=== PATIENT | female | born 1985 | race Asian ===

== ENCOUNTER 2017-10-05 17:00 | Outpatient (CLI) | payer MEDICAID, OTHER ==
[2017-10-05 17:56] LABS: WHITE BLOOD COUNT 11.8 10^3/ul (4.8-10.8)
[2017-10-05 17:56] LABS: ABNORMAL IP MESSAGE 1; HEMATOCRIT 32.5 % (37.0-47.0); HEMOGLOBIN 11.1 g/dl (12.0-16.0); MEAN CORPUSCULAR HEMOGLOBIN 33.3 pg (29.0-33.0); MEAN CORPUSCULAR HGB CONC 34.2 g/dl (32.0-37.0); MEAN CORPUSCULAR VOLUME 97.6 fl (82.0-101.0); MEAN PLATELET VOLUME 10.8 fl (7.4-10.4); PLATELET COUNT 187 10^3/UL (140-415); RED BLOOD COUNT 3.33 10^6/ul (4.20-5.40); RED CELL DISTRIBUTION WIDTH 14.1 % (11.5-14.5)
[2017-10-05 18:04] LABS: ADD MAN DIFF? YES; POSITIVE DIFF @See below
[2017-10-05 18:19] LABS: ALANINE AMINOTRANSFERASE 19 IU/L (13-69); ALBUMIN 3.8 g/dl (3.3-4.9); ALBUMIN/GLOBULIN RATIO 1.31; ALKALINE PHOSPHATASE 59 IU/L (42-121); ANION GAP 16 (8-16); ASPARTATE AMINO TRANSFERASE 22 IU/L (15-46); BILIRUBIN,INDIRECT 0.1 mg/dl (0-1.1); BILIRUBIN,TOTAL 0.1 mg/dl (0.2-1.3); BLOOD UREA NITROGEN 11 mg/dl (7-20); CALCIUM 8.5 mg/dl (8.4-10.2); CARBON DIOXIDE 23 mmol/L (21-31); CHLORIDE 108 mmol/L (97-110); CREATININE 0.45 mg/dl (0.44-1.00); GLUCOSE 84 mg/dl (70-220); POTASSIUM 3.8 mmol/L (3.5-5.1); SODIUM 143 mmol/L (135-144); TOTAL PROTEIN 6.7 g/dl (6.1-8.1)
[2017-10-05 18:32] LABS: ANISOCYTOSIS 1+ (0-0); BAND NEUTROPHILS #M 1.5 10^3/ul (0.0-0.6); BAND NEUTROPHILS % (M) 13 % (0-4); EOSINOPHILS % (M) 2 % (0-7); LYMPHOCYTES #M 2.8 10^3/ul (0.8-2.9); LYMPHOCYTES % (M) 24 % (15-51); METAMYELOCYTES #M 0.4 10^3/ul (0.0-0.0); METAMYELOCYTES %M 4 % (0-0); MICROCYTOSIS 1+ (0-0); MONOCYTE #M 0.5 10^3/ul (0.3-0.9); MONOCYTES % (M) 5 % (0-11); PLATELET ESTIMATE NORMAL; SEG NEUT #M 6.3 10^3/ul (1.6-7.5); SEGMENTED NEUTROPHILS (M) % 52 % (39-77); SMUDGE%M 1 % (0-0)
== END 2017-10-05 19:50 | disposition home or self-care (01) ==
LOC: OBT 17:00 → L-D 17:01 → OBT 19:50
DX: O99.613 Diseases of the digestive system complicating pregnancy, third trimester (principal); K80.20 Calculus of gallbladder without cholecystitis without obstruction; Z3A.32 32 weeks gestation of pregnancy
CPT/HCPCS: 36415; 76705; 80053; 85025

== ENCOUNTER 2017-11-23 10:53 | Outpatient (CLI) | payer MEDICAID | END 2017-11-23 13:56 | disposition home or self-care (01) | LOC: OBT 10:53 → L-D 10:53 → OBT 13:56 | DX: O26.893 Other specified pregnancy related conditions, third trimester (principal); Z3A.37 37 weeks gestation of pregnancy; R06.02 Shortness of breath | CPT/HCPCS: 76818 ==

== ENCOUNTER 2017-11-23 14:02 | Emergency (ER) | payer MEDICAID | END 2017-11-23 16:29 | disposition home or self-care (01) | LOC: FTE 14:02 | DX: O99.89 Other specified diseases and conditions complicating pregnancy, childbirth and the puerperium (principal); R06.09 Other forms of dyspnea; Z3A.39 39 weeks gestation of pregnancy | CPT/HCPCS: 99283; Z7502 ==

== ENCOUNTER 2017-11-27 19:49 | Inpatient (IN) | payer MEDICAID ==
[2017-11-27] MEDS ORDERED: LIDOCAINE 1% (MPF) 30 ML INJ INJ (21:00)
[2017-11-27] MEDS ORDERED: METHYLERGONOVINE 0.2 MG INJ IM (21:00)
[2017-11-27] MEDS ORDERED: IBUPROFEN 600 MG TAB PO (21:00)
[2017-11-27] MEDS ORDERED: MISOPROSTOL 200 MCG TAB PR (21:00)
[2017-11-27] MEDS ORDERED: BUTORPHANOL 2 MG INJ IV (21:00)
[2017-11-27] MEDS ORDERED: CARBOPROST 250 MCG INJ IM (21:00)
[2017-11-27] MEDS ORDERED: OXYTOCIN 30 UNITS/LR 500 ML IV ×2 (21:00)
[2017-11-27] MEDS: LACTATED RINGER'S 1,000 ML IV (22:00)
[2017-11-27 22:41] LABS: ADD MAN DIFF? NO
[2017-11-27 22:43] LABS: BASOPHILS % 0.2 % (0.0-2.0); EOSINOPHILS # 0.4 10^3/ul (0.0-0.5); EOSINOPHILS % 3.4 % (0.0-7.0); HEMATOCRIT 36.2 % (37.0-47.0); HEMOGLOBIN 12.2 g/dl (12.0-16.0); LYMPHOCYTES # 1.7 10^3/ul (0.8-2.9); MEAN CORPUSCULAR HEMOGLOBIN 33.6 pg (29.0-33.0); MEAN CORPUSCULAR HGB CONC 33.7 g/dl (32.0-37.0); MEAN CORPUSCULAR VOLUME 99.7 fl (82.0-101.0); MEAN PLATELET VOLUME 12.4 fl (7.4-10.4); MONOCYTE # 0.8 10^3/ul (0.3-0.9); MONOCYTES % 7.2 % (0.0-11.0); NEUTROPHIL # 7.4 10^3/ul (1.6-7.5); NEUTROPHILS % 70.9 % (39.0-77.0); PLATELET COUNT 172 10^3/UL (140-415); RED BLOOD COUNT 3.63 10^6/ul (4.20-5.40); RED CELL DISTRIBUTION WIDTH 13.7 % (11.5-14.5)
[2017-11-27 22:43] LABS: WHITE BLOOD COUNT 10.5 10^3/ul (4.8-10.8)
[2017-11-27 23:03] LABS: INR 0.91; PROTIME 12.3 Sec (11.9-14.9)
[2017-11-28] MEDS: DINOPROSTONE 10 MG VAG SUPP VAG (00:29)
[2017-11-28] MEDS ORDERED: FENTAnyl 2MCG/ML-ROPIV 0.2% 100 ML (03:02)
[2017-11-28] MEDS: LACTATED RINGER'S 1,000 ML IV ×4 (03:07→20:54)
[2017-11-28] MEDS ORDERED: NALOXONE (0.4 MG/ML) INJ IV ×2 (13:30→17:30)
[2017-11-28] MEDS: FENTAnyl 2MCG/ML-ROPIV 0.2% 100 ML BAG EPI (13:32)
[2017-11-28 15:23] LABS: RAPID PLASMA REAGIN NONREACTIVE (NR)
[2017-11-28] MEDS ORDERED: CEFAZOLIN 2 GM/50 ML (PMX) 50 ML IVPB (15:46)
[2017-11-28] MEDS: CEFAZOLIN 2 GM/50 ML (PMX) 50 ML IVPB ×2 (16:00→22:38)
[2017-11-28] MEDS ORDERED: SODIUM BICARBONATE (IV ADD) 50 ML (16:04)
[2017-11-28] MEDS ORDERED: LIDOCAINE 2% (SDV) 5 ML INJ (16:04)
[2017-11-28] MEDS ORDERED: FENTAnyl 50 MCG/ML VIAL ×2 (16:04→16:22)
[2017-11-28] MEDS ORDERED: ONDANSETRON 4 MG INJ (16:07)
[2017-11-28] MEDS ORDERED: FAMOTIDINE 20 MG INJ (16:08)
[2017-11-28] MEDS ORDERED: DEXAMETHASONE 4 MG/ML 1 ML INJ (16:08)
[2017-11-28] MEDS ORDERED: morphine SULFATE/PF (10 MG/10 ML) INJ (16:25)
[2017-11-28] MEDS ORDERED: ONDANSETRON 4 MG INJ IV ×2 (17:30→21:00)
[2017-11-28] MEDS ORDERED: DIPHENHYDRAMINE 50 MG INJ IV (17:30)
[2017-11-28] MEDS ORDERED: HYDROmorphONE 0.5 MG/0.5 ML SYG IV ×2 (17:30)
[2017-11-28] MEDS ORDERED: ZOLPIDEM 5 MG TAB PO (17:30)
[2017-11-28] MEDS: OXYTOCIN 30 UNITS/LR 500 ML IV ×3 (18:23→22:38)
[2017-11-28] MEDS: KETOROLAC 30 MG INJ IV (19:06)
[2017-11-28] MEDS: ACETAMINOPHEN 325 MG TAB PO (19:39)
[2017-11-28] MEDS ORDERED: METHYLERGONOVINE 0.2 MG INJ IM (21:00)
[2017-11-28] MEDS ORDERED: MISOPROSTOL 200 MCG TAB PR (21:00)
[2017-11-28] MEDS ORDERED: CARBOPROST 250 MCG INJ IM (21:00)
[2017-11-28] MEDS ORDERED: OXYTOCIN 30 UNITS/LR 500 ML IV (21:00)
[2017-11-28] MEDS: SENNA/DOCUSATE NA (8.6MG/50MG) TAB PO (21:00)
[2017-11-28] MEDS: DIPHENHYDRAMINE 50 MG INJ IV (21:44)
[2017-11-29] MEDS: CEFAZOLIN 2 GM/50 ML (PMX) 50 ML IVPB ×2 (06:25→14:10)
[2017-11-29] MEDS: SENNA/DOCUSATE NA (8.6MG/50MG) TAB PO ×2 (08:05→21:07)
[2017-11-29] MEDS: KETOROLAC 30 MG INJ IV (08:05)
[2017-11-29] MEDS: LACTATED RINGER'S 1,000 ML IV ×3 (08:32→20:54)
[2017-11-29] MEDS: LANOLIN 7 GM TUBE TOP (08:44)
[2017-11-29 09:52] LABS: ADD MAN DIFF? NO
[2017-11-29 09:56] LABS: WHITE BLOOD COUNT 16.7 10^3/ul (4.8-10.8)
[2017-11-29 09:56] LABS: BASOPHILS % 0.2 % (0.0-2.0); EOSINOPHILS # 0.2 10^3/ul (0.0-0.5); HEMATOCRIT 32.8 % (37.0-47.0); LYMPHOCYTES # 1.7 10^3/ul (0.8-2.9); MEAN CORPUSCULAR HGB CONC 33.5 g/dl (32.0-37.0); MEAN CORPUSCULAR VOLUME 101.2 fl (82.0-101.0); MEAN PLATELET VOLUME 11.5 fl (7.4-10.4); MONOCYTES % 5.7 % (0.0-11.0); NEUTROPHIL # 13.8 10^3/ul (1.6-7.5); NEUTROPHILS % 82.3 % (39.0-77.0); PLATELET COUNT 146 10^3/UL (140-415); RED BLOOD COUNT 3.24 10^6/ul (4.20-5.40); RED CELL DISTRIBUTION WIDTH 13.9 % (11.5-14.5)
[2017-11-29] MEDS ORDERED: OXYCODONE/ACETAMINOPHEN (5/325) TAB PO ×2 (17:30)
[2017-11-29] MEDS ORDERED: ZOLPIDEM 5 MG TAB PO (17:30)
[2017-11-29] MEDS: IBUPROFEN 600 MG TAB PO ×2 (18:37→23:36)
[2017-11-30] MEDS: LACTATED RINGER'S 1,000 ML IV ×3 (04:54→18:53)
[2017-11-30] MEDS: IBUPROFEN 600 MG TAB PO ×4 (05:44→23:51)
[2017-11-30] MEDS: SENNA/DOCUSATE NA (8.6MG/50MG) TAB PO ×2 (09:51→21:00)
[2017-11-30] MEDS ORDERED: LIDOCAINE 4% CR (12:14)
[2017-11-30 12:20] LABS: ADD MAN DIFF? NO
[2017-11-30 12:26] LABS: BASOPHILS % 0.2 % (0.0-2.0); EOSINOPHILS # 0.4 10^3/ul (0.0-0.5); EOSINOPHILS % 2.5 % (0.0-7.0); LYMPHOCYTES # 1.6 10^3/ul (0.8-2.9); LYMPHOCYTES % 10.4 % (15.0-51.0); MEAN CORPUSCULAR HEMOGLOBIN 33.6 pg (29.0-33.0); MEAN CORPUSCULAR HGB CONC 33.3 g/dl (32.0-37.0); MEAN CORPUSCULAR VOLUME 100.8 fl (82.0-101.0); MEAN PLATELET VOLUME 11.9 fl (7.4-10.4); MONOCYTE # 0.7 10^3/ul (0.3-0.9); MONOCYTES % 4.4 % (0.0-11.0); NEUTROPHIL # 12.5 10^3/ul (1.6-7.5); NEUTROPHILS % 81.5 % (39.0-77.0); PLATELET COUNT 166 10^3/UL (140-415); RED BLOOD COUNT 3.57 10^6/ul (4.20-5.40); RED CELL DISTRIBUTION WIDTH 13.8 % (11.5-14.5)
[2017-11-30 12:26] LABS: WHITE BLOOD COUNT 15.4 10^3/ul (4.8-10.8)
[2017-12-01] MEDS: IBUPROFEN 600 MG TAB PO ×2 (05:18→12:47)
[2017-12-01] MEDS: SENNA/DOCUSATE NA (8.6MG/50MG) TAB PO (09:00)
[2017-12-01] MEDS: DIPHTH/TET/ACEL PERTUSS (ADULT) 0.5 ML VIAL IM* (14:19)
== END 2017-12-01 15:30 | disposition home or self-care (01) | DRG 766 ==
LOC: L-D 19:49 → PP1 11-28 20:05
PROVIDERS: Obstetrics & Gynecology
PROC: 10D00Z1 Extraction of Products of Conception, Low, Open Approach (ICD-10-PCS; principal; 2017-11-28)
PROC: 3E033VJ Introduction of Other Hormone into Peripheral Vein, Percutaneous Approach (ICD-10-PCS; 2017-11-28)
DX: O48.0 Post-term pregnancy (principal); Z3A.40 40 weeks gestation of pregnancy; Z37.0 Single live birth
CPT/HCPCS: 62319; 76815; 76818; 85025; 85610; 85730; 86592; 86850; 86900; 86901; 90715; 94760; 99464

== ENCOUNTER 2017-12-10 21:23 | Emergency (ER) | payer MEDICAID ==
[2017-12-10 23:33] LABS: ADD MAN DIFF? NO
[2017-12-10 23:37] LABS: WHITE BLOOD COUNT 12.5 10^3/ul (4.8-10.8)
[2017-12-10 23:37] LABS: BASOPHIL # 0.1 10^3/ul (0.0-0.1); BASOPHILS % 0.4 % (0.0-2.0); EOSINOPHILS % 7.8 % (0.0-7.0); HEMATOCRIT 41.7 % (37.0-47.0); HEMOGLOBIN 13.7 g/dl (12.0-16.0); LYMPHOCYTES # 1.9 10^3/ul (0.8-2.9); LYMPHOCYTES % 15.1 % (15.0-51.0); MEAN CORPUSCULAR HEMOGLOBIN 32.9 pg (29.0-33.0); MEAN CORPUSCULAR HGB CONC 32.9 g/dl (32.0-37.0); MEAN CORPUSCULAR VOLUME 100.2 fl (82.0-101.0); MEAN PLATELET VOLUME 10.4 fl (7.4-10.4); MONOCYTE # 0.8 10^3/ul (0.3-0.9); MONOCYTES % 6.1 % (0.0-11.0); NEUTROPHIL # 8.7 10^3/ul (1.6-7.5); NEUTROPHILS % 69.9 % (39.0-77.0); PLATELET COUNT 311 10^3/UL (140-415); RED BLOOD COUNT 4.16 10^6/ul (4.20-5.40); RED CELL DISTRIBUTION WIDTH 13.1 % (11.5-14.5)
[2017-12-11] MEDS: IBUPROFEN 200 MG TAB PO (00:01)
== END 2017-12-11 00:15 | disposition home or self-care (01) ==
LOC: E/R 12-11 00:15
DX: O86.0 Infection of obstetric surgical wound (principal); B96.89 Other specified bacterial agents as the cause of diseases classified elsewhere; Z87.891 Personal history of nicotine dependence
CPT/HCPCS: 36415; 85025; 99283-25